=== PATIENT | female | born 1975 | race Caucasian/White ===

== ENCOUNTER 2023-06-30 08:02 | Emergency (ER) | payer MEDICAID ==
[~2023-06-30] VITALS: Ht 162.6 cm; Wt 72.6 kg
[2023-06-30 08:37] VITALS: BP 194/103; PULSE 74; RESP 18; TEMP 97; O2SAT 98
[2023-06-30] MEDS ORDERED: PRED20TA5 PO (09:41)
[2023-06-30] MEDS ORDERED: POLY15SO74 OP (09:41)
[2023-06-30] MEDS ORDERED: VALA1TAB40 PO (09:41)
[2023-06-30] MEDS ORDERED: MINE3.5O30 OP (09:41)
[2023-06-30 10:04] VITALS: BP 157/99; PULSE 74; RESP 18; TEMP 97; O2SAT 98
== END 2023-06-30 10:05 | disposition home or self-care (01) ==
LOC: MED 08:02
DX: G51.9 Disorder of facial nerve, unspecified (principal); F17.200 Nicotine dependence, unspecified, uncomplicated; F15.90 Other stimulant use, unspecified, uncomplicated; Z71.6 Tobacco abuse counseling; Z79.899 Other long term (current) drug therapy
CPT/HCPCS: 70450; 99284

== ENCOUNTER 2023-07-11 10:25 | Emergency (ER) | payer SELFPAY ==
[~2023-07-11] VITALS: Ht 160 cm; Wt 73.9 kg
[~2023-07-11 10:25] MED LIST: MINE3.5O30 OP; POLY15SO74 OP; PRED20TA5 PO; VALA1TAB40 PO
[2023-07-11 10:58] VITALS: BP_SYST 173; BP_SYST 184; BP_DIAS 107; BP_DIAS 95; PULSE 87; RESP 16; TEMP 97.6; O2SAT 100
[2023-07-11] MEDS ORDERED: KETOROLAC 30 MG/ML VIAL IM ONE (12:50)
[2023-07-11] MEDS ORDERED: IBUP-2230 PO (12:54)
[2023-07-11] MEDS ORDERED: GABA300C PO (12:54)
== END 2023-07-11 13:40 | disposition home or self-care (01) ==
LOC: MED 10:25
DX: G51.0 Bell's palsy (principal); Z79.899 Other long term (current) drug therapy
CPT/HCPCS: 96372; 99283; J1885